=== PATIENT | female | born 1950 | race African-American/Black ===

== ENCOUNTER 2017-02-14 13:40 | Outpatient (CLI) | payer MEDICARE ==
--- NOTE | 2017-02-14 14:41 | MMO ---
BILATERAL SCREENING MAMMOGRAPHY: Date: 02/14/2017 COMPARISON: 01/20/2016, 01/16/2015, and 01/17/2014. HISTORY: Screening mammography. FINDINGS: This patient's mammogram was interpreted with the assistance of computer-aided detection. Scattered fibroglandular densities are present. There is no dominant mass or architectural distortio n. No concerning calcifications are seen. IMPRESSION: BIRADS 1 - Negative. Recommend annual screening mammography. POS: [facility]
== END 2017-02-14 13:41 | disposition home or self-care (01) ==
LOC: SCSMAMMO 13:40
PROVIDERS: ATTEND Family Medicine
DX: Z12.31 Encounter for screening mammogram for malignant neoplasm of breast (principal)
CPT/HCPCS: 77067; G0202

== ENCOUNTER 2017-02-18 17:32 | Emergency (ER) | payer MEDICARE ==
[2017-02-18 18:30] LABS: ALT (SGPT) 20 U/L (8-55); AST (SGOT) 25 U/L (5-34); Alkaline Phosphatase 71 U/L (40-150); Anion Gap 20 mmol/L (10-20); BUN (Urea Nitrogen) 14 mg/dL (9.8-20.1); Band 3 % (5-11); Bilirubin, Total 0.5 mg/dL (0.2-1.2); Calc. Creatinine Clearance 0 mL/min (70-130); Calcium 9.5 mg/dL (7.8-10.44); Carbon Dioxide 22 mmol/L (23-31); Chloride 101 mmol/L (98-107); Estimated GFR-MDRD 58; Globulin 3.4 g/dL (2.4-3.5); Hematocrit 32.4 % (36.0-47.0); Mean Platelet Volume 7.3 fL (7.4-10.4); Neutrophil 59 % (42-75); Protein, Total 7.5 g/dL (6.0-8.3); Reactive Lymphocytes 1 % (0-10); Red Blood Cell (RBC) Count 3.67 mill/uL (4.20-5.40); White Blood Cell (WBC) Count 8.5 thou/uL (4.8-10.8)
== END 2017-02-18 18:56 | disposition home or self-care (01) ==
LOC: SCSER 17:32
DX: J10.1 Influenza due to other identified influenza virus with other respiratory manifestations (principal); E11.9 Type 2 diabetes mellitus without complications; E03.9 Hypothyroidism, unspecified; I10 Essential (primary) hypertension; Z79.4 Long term (current) use of insulin; Z79.82 Long term (current) use of aspirin; Z79.899 Other long term (current) drug therapy
CPT/HCPCS: 36415; 80053; 85025; 99284

== ENCOUNTER 2018-02-17 15:34 | Outpatient (CLI) | payer MEDICARE ==
--- NOTE | 2018-02-17 16:04 | MMO ---
BILATERAL SCREENING MAMMOGRAM: Date: 02/17/18 HISTORY: 67-year-old female. Routine screening mammography. COMPARISON: 02/14/17, 01/19/15, 01/16/15, and 01/17/14. TECHNIQUE: CC and MLO views of both breasts are submitted for interpretation. This patient's mammogram was reviewed with the assistance of computer-aided detection. FINDINGS: The breasts are composed of scattered fibroglandular tissue. Bilaterally, no suspicious dominant mass , architectural distortion, or suspicious calcifications. IMPRESSION: BIRADS 1: Negative RECOMMENDATION: Annual mammogram. POS: [facility]
== END 2018-02-17 15:35 | disposition home or self-care (01) ==
LOC: SCSMAMMO 15:34
PROVIDERS: ATTEND Family Medicine
DX: Z12.31 Encounter for screening mammogram for malignant neoplasm of breast (principal)
CPT/HCPCS: 77067

== ENCOUNTER 2020-04-21 11:48 | Outpatient (CLI) | payer MEDICARE ==
--- NOTE | 2020-04-21 13:39 | MMO ---
Bilateral MAMMO Bilat Screen [facility]. CLINICAL HISTORY: Patient is 69 years old and is seen for screening. The patient has no family history of breast cancer. The patient has no personal history of cancer. VIEWS: The views performed were: bilateral craniocaudal with tomosynthesis and bilateral mediolateral oblique with tomosynthesis. FILMS COMPARED: The present examination has been compared to prior imaging studies performed at [facility] on 01/16/2015, 01/20/2016, 02/14/2017 and 02/17/2018. This study has been interpreted with the assistance of computer-aided detection. MAMMOGRAM FINDINGS: There are scattered fibroglandular densities. There are no suspicious masses, suspicious calcifications, or new areas of architectural distortion. IMPRESSION: THERE IS NO MAMMOGRAPHIC EVIDENCE OF MALIGNANCY. A ROUTINE FOLLOW-UP MAMMOGRAM IN 1 YEAR IS RECOMMENDED. THE RESULTS OF THIS EXAM WERE SENT TO THE PATIENT. ACR BI-RADS Category 1 - Negative MAMMOGRAPHY NOTE: 1. A negative mammogram report should not delay a biopsy if a dominant of clinically suspicious mass is present. 2. Approximately 10% to 15% of breast cancers are not detected by mammography. 3. Adenosis and dense breasts may obscure an underlying neoplasm. Reported by: THEA CORTEZ MD Electonically Signed: [id number]
== END 2020-04-21 11:49 | disposition home or self-care (01) ==
LOC: BICMAMMO 11:48
PROVIDERS: ATTEND Family Medicine
DX: Z12.31 Encounter for screening mammogram for malignant neoplasm of breast (principal)
CPT/HCPCS: 77063; 77067

== ENCOUNTER 2023-08-02 11:56 | Outpatient (CLI) | payer MEDICARE ==
[2023-08-02 13:52] LABS: Hematocrit 34.1 % (34.9-44.5); Hemoglobin 11.9 g/dL (12.0-15.5); Mean Corpuscular HGB CONC 34.9 g/dL (32.0-36.0); Mean Corpuscular Hemoglobin 31.4 pg (27.0-33.0); Mean Platelet Volume 10.9 fL (7.4-10.4); Platelet Count 252 10x3/uL (150-450); RBC Distribution Width 13.6 % (11.5-14.5); Red Blood Cell (RBC) Count 3.79 10x6/uL (3.90-5.03); White Blood Cell (WBC) Count 6.5 10x3/uL (3.5-10.5)
[2023-08-02 13:58] LABS: Anion Gap 16 mmol/L (10-20); BUN (Urea Nitrogen) 20 mg/dL (9.8-20.1); Calc. Creatinine Clearance 0 mL/min (70-130); Calcium 9.8 mg/dL (7.8-10.44); Carbon Dioxide 27 mmol/L (23-31); Chloride 102 mmol/L (98-107); Estimated GFR 30; Glucose 226 mg/dL (83-110); PTT 26.7 sec (22.0-33.0); Potassium 3.9 mmol/L (3.5-5.1); Prothrombin Time 10.5 sec (9.5-12.1); Sodium 141 mmol/L (136-145)
== END 2023-08-02 11:57 | disposition home or self-care (01) ==
LOC: LABBT 11:56
PROVIDERS: ATTEND Neurological Surgery
DX: Z01.812 Encounter for preprocedural laboratory examination (principal); M50.20 Other cervical disc displacement, unspecified cervical region
CPT/HCPCS: 80048; 85027; 85610; 85730

== ENCOUNTER 2023-08-11 13:59 | Emergency (ER) | payer MEDICARE ==
[2023-08-11] MEDS ORDERED: Sucralfate 1 GM/10 ML UDCUP ONE (16:53)
== END 2023-08-11 17:11 | disposition home or self-care (01) ==
LOC: ERS 13:59
DX: T18.198A Other foreign object in esophagus causing other injury, initial encounter (principal)
CPT/HCPCS: 99284